=== PATIENT | female | born 1980 | race Caucasian/White ===

== ENCOUNTER 2024-05-29 09:39 | Day surgery (SDC) | payer BC ==
[2024-05-26 10:20] LABS: Specific Gravity 1.008 (1.005-1.030); Urine Bilirubin NEGATIVE (Negative); Urine Blood Negative (Negative); Urine Clarity Clear (Clear); Urine Color Colorless (Yellow); Urine Glucose NEGATIVE (Negative); Urine Ketones NEGATIVE (Negative); Urine Microscopic Reflex YN NO UMIC; Urine Nitrite NEGATIVE (Negative); Urine Protein NEGATIVE (Negative); Urine Urobilinogen Normal (Normal); Urine pH 6.5 (5.0-7.0)
[2024-05-26 10:24] LABS: Absolute Eosinophils 0.2 K/uL (0-0.5); Absolute Lymphocytes (CBC) 1.4 K/uL (0.7-4.9); Absolute Monocytes 0.3 K/uL (0.1-1.3); Absolute Neutrophil 3.7 K/uL (1.8-8.0); Basophils % 0.6 % (0-1.3); Eosinophils % 3.1 % (0-4.4); Hematocrit 38.9 % (36.0-45.0); Hemoglobin 13.4 g/dL (12.0-15.0); Lymphocytes % 25.1 % (15.3-44.8); MCH 29.8 pg (27.0-35.0); MCHC 34.4 g/dL (32.0-36.0); MCV 86.6 fL (80-100); MPV 9.9 fL (7.6-11.3); Monocytes % 5.8 % (3.3-12.3); Neutrophils % 65.4 % (41.7-73.7); Nucleated Red Blood Cells % 0.2 % (0-0); Platelets 304 thou/uL (152-406); RBC Red Blood Cell Count 4.49 M/uL (3.86-4.86); Red Cell Distribution Width 14.2 % (12.1-15.2)
--- NOTE | 2024-05-26 12:00 | EKG ---
Test Date: 2024-05-26 Test Time: 10:02:21 [employer] Treatment Plant Operator: STEFF MEASUREMENT RESULTS: Intervals: Rate: 63 WI: 132 QRSD: 100 QT: 382 QTc: 390 Riva: P: 76 WI: 132 QRS: 77 T: 73 INTERPRETIVE STATEMENTS: Normal sinus rhythm Normal ECG No previous ECG available for comparison Electronically Signed On 05-26-24 11:59:06 CDT by Perico Moya
[2024-05-28 09:47] LABS: Specific Gravity 1.011 (1.005-1.030)
[2024-05-29] MEDS: Ringers Lactate 1,000 ML IV ONE (10:20)
[2024-05-29] MEDS: SCOPOLAMINE HYDROBROMIDE PATCH TD ONE (10:40)
[2024-05-29] MEDS ORDERED: KETAMINE HCL IN 0.9 % NACL 50 MG/5 ML SYRINGE IV ONE (10:50)
[2024-05-29] MEDS ORDERED: ONDANSETRON 4 MG/2 ML VIAL ONE (10:50)
[2024-05-29] MEDS ORDERED: LIDOCAINE 1% MPF 5 ML VIAL ONE (10:50)
[2024-05-29] MEDS ORDERED: ROCURONIUM 50 MG/5 ML VIAL IV ONE ×2 (10:50→12:06)
[2024-05-29] MEDS ORDERED: dexAMETHasone 10 MG/ML VIAL ONE (10:50)
[2024-05-29] MEDS ORDERED: MIDAZOLAM HCL 2 MG/2 ML INJ ONE (10:51)
[2024-05-29] MEDS ORDERED: propofoL 200 MG/20 ML VIAL IV ONE (10:51)
[2024-05-29] MEDS ORDERED: FENTANYL CITR 100 MCG/2 ML ONE ×2 (10:51→12:51)
[2024-05-29] MEDS: CEFAZOLIN SODIUM 2 GM/VIAL ONE (11:50)
[2024-05-29] MEDS ORDERED: EPINEPHrine 1 MG/10 ML SYR ONE (11:53)
[2024-05-29] MEDS ORDERED: EPHEDRINE SULF 50 MG/ML VIAL ONE (11:54)
[2024-05-29] MEDS: BUPIVACAINE 0.25% PF 30 ML VIAL ONE (11:57)
[2024-05-29] MEDS ORDERED: IBUPROFEN 200 MG TAB PO PRN (12:01)
--- NOTE | 2024-05-29 12:09 | P.BOP ---
Preoperative diagnosis: Menorrhagia, Fibroids, Dysmenorrhea, Pelvic pain Postoperative diagnosis: same, uterine prolapse posterior enterocele Primary procedure: TLH BS vaginal morcellation, USLS colpopexy, culdoplasty cysto Test Center Manager: Felicia Burden Estimated blood loss: 50 Specimen: uterus and tubes Findings: post enterocele, dense fibroid large Anesthesia: General Complications: None Fluids & blood products: LR 1500, UO 500 Transferred to: Recovery Room Condition: Good
[2024-05-29] MEDS ORDERED: Ringers Lactate 1,000 ML IV ONE (12:27)
[2024-05-29] MEDS ORDERED: GLYCOPYRROLATE 0.2 MG/ML SYR ONE (12:27)
[2024-05-29] MEDS ORDERED: KETOROLAC 30 MG/ML INJ ONE (13:17)
[2024-05-29] MEDS ORDERED: Mastisol Adhesive Liq ONE (13:24)
[2024-05-29 14:39] VITALS: O2SAT 100
[2024-05-29 15:03] VITALS: BP 110/65; TEMP 97.9
[2024-05-29] MEDS ORDERED: MEPERIDINE HCL 25 MG/ML SYR ONE (15:38)
[2024-05-29] MEDS ORDERED: PROMETHAZINE INJ 25 MG/ML AMP ONE (15:39)
[2024-05-29] MEDS: MEPERIDINE HCL 25 MG/ML SYR IM PRN (15:45)
[2024-05-29] MEDS: PROMETHAZINE INJ 25 MG/ML AMP IV PRN (15:46)
--- NOTE | 2024-05-29 23:30 | OP ---
Date of Procedure: 05/29/2024 Surgeon: Kareen Espitia MD Golf Course Keeper: Felicia Lerner Preoperative Diagnoses: Menorrhagia, pelvic pain, fibroids, dysmenorrhea. Postoperative Diagnoses: Menorrhagia, pelvic pain, fibroids, dysmenorrhea, uterine prolapse (level 1 defect) with a posterior enterocele. Procedures Performed: 1. Total laparoscopic hysterectomy, bilateral salpingectomy, vaginal morcellation for removal of the specimen. 2. Uterosacral ligament suspension, colpopexy, culdoplasty along with it and cystoscopy. Anesthesia: General endotracheal. Estimated Blood Loss: 50. Urine Output: 500. Fluids: 1500 LR. Specimens: Uterus and bilateral tubes. Complications: No complications. Drains: No drains. Patient's Condition: Stable. Findings: Uterus was slightly enlarged. There was a large posterior fibroid approximately 3 times t he size of the uterine body. Both ovaries appeared to be mostly cystic, however did not have any sig nificant abnormality in size. The appendix was visualized to make sure that there was no mucinous cy st. This was negative. The appendix appeared to be unremarkable. Liver, gallbladder, upper periton eal surfaces unremarkable. After the uterosacral suspension, and cystoscopy was negative, both urete norm orifices were visualized and there were good jets of urine from them. Indications: The patient is a 44-year-old, presented with bleeding and pelvic pain. She was evaluat ed with transvaginal ultrasound, found to have fibroids. No adnexal masses were noted, but there was suspected endometriosis from her clinical history, so we discussed about all the different options a fter endometrial sampling was negative, regarding medical management and surgical management. In the surgical management, myomectomy or hysterectomy along side removal of the fibroids was discussed and the patient wanted to proceed with this, although endometriosis excision if an endo was noted. This was consented for, and procedures as indicated. Vaginal morcellation was discussed with the patient due to the size of fibroid. Description Of Procedure: After informed consent was re-verified in the preoperative area, and her h usband and parents were present by the side, and questions and answers were done to all of their sati sfaction, she was taken back to the OR. 2 g of Ancef was given. She was placed in a supine fashion on the operating room table. General ane sthesia was given, and she was placed in dorsal lithotomy position. Abdomen was prepped with ChloraP rep; vulva, vagina, and perineum with Betadine and draped in a sterile fashion. Arms were tucked by the side, positioning was checked, SCDs were started. The patient was grounded. Time-out was done a nd then procedure started. Speculum was placed to expose the cervix. Anterior lip grasped with 2 Allis clamps and dilated to 16 -[place]. A large cup uterine manipulator was introduced and fixed in place. Moctezuma was used to drain the bladder and attached to a drainage bag and retracted inferiorly. 1 cm supraumbilical curvilinear incision was made with a scalpel after injecting 0.25% Marcaine at th e skin. Then, fascia was incised sharply with the knife and tagged with 0 Vicryl sutures. Peritoneu m entered sharply. Cayla was introduced and after adequate insufflation, site of entry was checked and was unremarkable. The patient was then placed in Trendelenburg position and two 5 left and right lower quadrant ports were placed under direct vision and a 10/11 in the suprapubic port. After the patient was positioned in a Trendelenburg position, the findings as dictated above were noted. Bilateral salpingectomy: The distal portion of the left tube was picked up with a grasper and taken down with the help of LigaSure. The distal portion was retrieved in a similar fashion. The right si de was also removed as there was a significant defect from tubal ligation. The proximal portions wer e dissected and kept along with the uterine specimen. Hysterectomy: Utero-ovarian ligaments were taken down, round ligament, and then broad ligaments with the LigaSure. Anterior and posterior peritoneum were opened up and bladder flap was raised. Anteri or vaginal wall was dissected posteriorly to the peritoneum, taken down towards the posterior aspect of the cuff. No evidence of any endometriosis in the pelvic sidewalls or cul-de-sac. The vessels were skeletonized. Broad ligament was taken down with the LigaSure and then vessels were taken down with the help of the bipolar LigaSure as well as bipolar curved-tip grasper. After the u terine artery and vein were cut, the cardinal ligaments were cauterized and cut and the left side was all cleared up. On the opposite side, similar dissection was performed taking down the utero-ovarian ligament, round ligament, broad ligament, and then opening the peritoneal folds connecting to the bladder flap and po steriorly. Once the vessels were well skeletonized and the ureter was dissected laterally, vessels w ere taken down at the level of the internal cervical os and then cardinal ligaments were taken down w ith the bipolar and cut with the LigaSure. Circumferential colpotomy was performed with a monopolar hook blade and the specimen was retrieved through the vagina. Vaginal morcellation: As the uterus was able to slide into the vagina, but on an attempt to place it up, used suction to remove the fibroid portion of the uterus, this was not feasible, so [place] s clamps were used and a 10 blade to morcellate the fibroid and remove the entire specimen. Vaginal occluder was placed and this area was draped. After changing gloves, I went over to the laparoscopic portion. Vaginal cuff closure: This was done with the help of interrupted 0 PDS sutures, 2 simple sutures on either angles, and then 3 [id number] in the middle to appose the entire thickness of the vagina . Uterosacral colpopexy: As there was a significant drop in the vagina when I noticed during the vagin al morcellation as well as on exam after the specimen was retrieved, I decided to resuspend the top o f the apex of the vaginal canal and then do a culdoplasty to prevent the posterior enterocele. 0 PDS suture was taken through the uterosacral on the left side. Then suture passed through the ante rior-posterior vaginal cuff crain. Then, culdoplasty was performed with the same suture taking the p eritoneum and the posterior cul-de-sac from one uterosacral to the other, then suture passed through the vaginal cuff and then down onto the uterosacral ligament. This was brought to the center, and on ce all the plicated areas were slowly gathered together, this was tied down here. On pelvic exam, th ere was an excellent support and occlusion of the posterior wall in the proximal portion of the canal . Thorough irrigation and suction were performed. All the trocars were removed under direct vision. F ascia at the umbilicus was closed with the tag 0 Vicryl sutures tied to each other and simple 0 Vicry l suture at the suprapubic site. Skin incisions were closed with 4-0 Monocryl. Cystoscopy: Moctezuma was removed and the vaginal occluder was removed. 17-Chadian sheath, 30-degree luis alfredo s, normal saline used for cystoscopy. Both ureteric orifices were well visualized and good jets of u rine from them were noted. General examination of the bladder was also negative for any mass. Bladd er was drained. The patient was recovered from anesthesia and taken to PACU in a stable condition. Her family was debriefed about her findings, and she will have this discussion on her 1 week postop. She also has both 1-week and 4-week postop appointments. VIDAL/MARY Voice ID: [id number] Report ID: [id number]
== END 2024-05-29 16:35 | disposition home or self-care (01) ==
LOC: OR 09:39
PROVIDERS: ATTEND Obstetrics & Gynecology
PROC: 0UT74ZZ Resection of Bilateral Fallopian Tubes, Percutaneous Endoscopic Approach (ICD-10-PCS; 2024-05-29)
PROC: 0USG0ZZ Reposition Vagina, Open Approach (ICD-10-PCS; 2024-05-29)
PROC: 0UQF7ZZ Repair Cul-de-sac, Via Natural or Artificial Opening (ICD-10-PCS; 2024-05-29)
PROC: 0UT94ZZ Resection of Uterus, Percutaneous Endoscopic Approach (ICD-10-PCS; principal; 2024-05-29 11:00)
DX: N92.0 Excessive and frequent menstruation with regular cycle (principal); R10.2 Pelvic and perineal pain; N94.6 Dysmenorrhea, unspecified; N81.2 Incomplete uterovaginal prolapse; D25.9 Leiomyoma of uterus, unspecified; N83.8 Other noninflammatory disorders of ovary, fallopian tube and broad ligament
CPT/HCPCS: 57283; 57268; 93005; 85025; 36415; 86900; 86850; 81025; 86901; 88307; 81003; 58572; J2550; J2704; J2003; J2250; J3010 ×2; J1100; J2175; J2405; J7120 ×2; J0171